=== PATIENT | female | born 1975 | race Caucasian/White ===

== ENCOUNTER 2017-03-01 19:02 | Emergency (ER) | payer SELFPAY ==
[2017-03-01 19:16] VITALS: BMI 21.2
--- NOTE | 2017-03-01 20:49 | DR.GENAD ---
HPI - PCP Primary Care Physician: nfd - Complaint/Symptoms Chief Complaint Doctors Comments: Patient is complaining of lower abdominal and suprapubic pain with dysuria, nocturia and polyuria for the past 24 hours getting worst today. Patient state she has been taking AZO and other over the counter medicine for dysuria but it has not been helping. States she urinates every 2-3 seconds and she has been having low back pain. She denies any recent trauma. Chief Complaint:: urinary frequency, flank pain both sides Self Treatment fo Chief Complaint: azo - Nurses notes reviewed Nurses Notes Review: Yes - Source History Provided: Patient - Mode of Arrival Mode of Arrival: Ambulatory - Timing Onset of Chief Complaint: 02/22/17 Came on: Gradually - Duration Duration: Intermittent How lon Duration: Days - Location Location: lower abdominal - Severity Severity: Moderate - Modifying Factors Worsens:: urinates Improves:: nothing PMH - PMH Past Medical History: No Past Surgical History: Yes Surgical History: BUSINESS EXECUTIVE Surgery - Family History History of Family Medical Conditions: Yes Family Medical History: Cancer, Coronary Artery Disease, Hypertension - Social History Does patient currently use any type of tobacco product: No Have you used tobacco products in the last 12 months: No Type of Tobacco Use: None Does any household member use tobacco: No Alcohol Use: None Do you use any recreational Drugs:: No Lives With: Family Lives Where: Home - infectious screening In the last 2 months have you had wt loss of >10#?: NO Have you had fever, night sweats or hemotysis?: No Have you traveled outside the country in the last 6 months?: No Isolation: Standard ROS - Review of Systems Constitutional: No Symptoms Reported. negative: See HPI, Chills, Diaphoresis, Fever, Malaise, Weakness, Irritable, Fatigue, Loss of Appetite, Other Eyes: No Symptoms Reported ENTM: No Symptoms Reported, Nose Discharge, Nose Congestion Respiratoy: No Symptoms Reported Cardiovascular: No Symptoms Reported Gastrointestinal/Abdominal: No Symptoms Reported, Abdominal Pain Genitourinary: No Symptoms Reported, Dysuria, Frequency Neurological: No Symptoms Reported. negative: See HPI, Anxiety, Depressed, Emotional Problems, Headache, Numbness, Paresthesia, Pre-existing Deficit, Seizure, Tingling, Tremors, Weakness, Dizziness, Problems Walking, Speech Problem, Other Musculoskeletal: No Symptoms Reported Integumentary: No Symptoms Reported, Change in Color Hematologic/Lymphatic: No Symptoms Reported. negative: See HPI, Anemia, Blood Clots, Easy Bleeding, Easy Bruising, Swollen Glands, Lymphadenopathy, Other Endocrine: No Symptoms Reported, Increased Urine Psychiatric: No Symptoms Reported PE - Vital Signs Vitals: Temperature 99.4 F Pulse Rate 100 Respiratory Rate 16 Blood Pressure 127/86 O2 Sat by Pulse Oximetry 99 - General Limitations: No Limitations General Appearance: Alert, In No Apparent Distress - Head Head Exam: Normal Inspection, Atraumatic, Normocephalic - Eyes Eye exam: Normal Appearance, PERRL, EOMI. negative: Scleral Icterus, Conjunctival Injection, Nystagmus, Miosis, Mydrasis, Periorbital Swelling, Periorbital Tenderness, Other - ENT ENT Exam: Normal Exam, Normal Oropharynx, Normal External Ear Exam, Mucous Membranes Moist, TM's Normal Bilaterally External Ear Exam: Normal External Inspection TM/Canal Exam: Bilateral Normal Nose Exam: Normal Nose Exam Mouth Exam: Normal Inspection Throat Exam: Normal Inspection - Neck Neck Exam: Normal Inspection, Full ROM, Trachea Midline. negative: Tenderness, Meningismus, Lymphadenopathy, Thyromegaly, Other - Chest Chest Inspection: Normal Inspection - Respiratory Respiratory Exam: Normal Lung Sounds Bilat Respiratory Exam: Bilateral Clear to Auscultation - Cardiovascular Cardiovascular Exam: Regular Rate, Normal Rhythm, Normal Heart Sounds - Abdominal Exam Abdominal Exam: Normal Inspection, Normal Bowel Sounds, Soft, Tenderness ( suprapubic tenderness), Guarding Abdominal Tenderness: Suprapubic, Moderate - Extremities Extremities Exam: Normal Inspection, Full ROM, Normal Capillary Refill. negative: Tenderness, Edema, Joint Swelling, Calf Tenderness, Other - Back Back Exam: Normal Inspection, Full ROM - Neurologic Neurological Exam: Alert, Oriented X3, CN II-XII Intact, Normal Gait, Reflexes Normal - Psychiatric Psychiatric Exam: Normal Affect, Normal Mood. negative: Depressed, Agitated, Anxious, Flat Affect, Manic, Homicidal Ideation, Suicidal Ideation, Other - Skin Skin Exam: Warm, Dry, Intact, Normal Color ROR - Labs Reviewed Laboratory Results Reviewed?: Yes (all lab results reviewed and discussed with patient and family) Laboratory: Specimen Type Clean catch urine 03/01/17 20:00 Urine Color Ashley (YELLOW) 03/01/17 20:00 Urine Appearance Slightly hazy (CLEAR) 03/01/17 20:00 Urine RBC 04 - 08 /HPF (NEGATIVE) 03/01/17 20:00 Urine WBC 20 - 35 /HPF (NEGATIVE) 03/01/17 20:00 Urine WBC Clumps Rare /HPF (NEGATIVE) 03/01/17 20:00 Ur Squamous Epith Cells Few /HPF (NEGATIVE) 03/01/17 20:00 Urine Bacteria Trace /HPF (Negative) 03/01/17 20:00 Urine Mucus Moderate /HPF (NEGATIVE) 03/01/17 20:00 Ur Culture Indicated? Yes/culture set up 03/01/17 20:00 Micro UA Comment Unable to perform (-) 03/01/17 20:00 - Diagnosis Discharge Problem: Cystitis Urinary tract infection Qualifiers: Urinary tract infection type: acute cystitis - Discharge Plan Disposition: HOME, SELF-CARE Condition: Stable Prescriptions: Ciprofloxacin HCl [CIPRO 500 MG TAB *] 500 mg PO Q12H #20 tab Phenazopyridine HCl [Pyridium] 200 mg PO BID #20 tablet - Follow ups/Referrals Follow ups/Referrals: [facility],None [Primary Care Provider] - 3 days - Instructions Instructions: Urinary Tract Infection, Adult, Dysuria
[2017-03-01 20:51] LABS: APPEARANCE,URINE SLIGHTLY HAZY (CLEAR); COLOR,URINE ORANGE (YELLOW)
[2017-03-01 20:52] LABS: SQUAMOUS EPITHELIAL CELL,UR FEW /HPF (NEGATIVE); WBC CLUMPS,URINE RARE /HPF (NEGATIVE)
[2017-03-01 20:53] LABS: BACTERIA,URINE Trace /HPF (Negative); MUCUS,URINE MODERATE /HPF (NEGATIVE)
[2017-03-01] MEDS ORDERED: TYLENOL 500 MG TAB EXTRA STRENGTH PO ONE ×2 (21:03→21:05)
[2017-03-01] MEDS ORDERED: LEVAQUIN TAB 500 MG PO STA (22:01)
[2017-03-01] MEDS ORDERED: MOTRIN TAB 800 MG PO STA (22:02)
[2017-03-01] MEDS ORDERED: LEVAQUIN TAB 500 MG ONE (22:17)
[2017-03-01] MEDS ORDERED: MOTRIN TAB 800 MG PO ONE (22:17)
[2017-03-01 22:47] VITALS: BP 107/79
== END 2017-03-01 22:45 | disposition home or self-care (01) ==
LOC: ER 19:02
DX: N30.90 Cystitis, unspecified without hematuria (principal); N39.0 Urinary tract infection, site not specified
CPT/HCPCS: 81015; 99282